=== PATIENT | male | born 1975 | race Caucasian/White ===

== ENCOUNTER 2016-07-31 16:18 | Emergency (ER) | payer BC ==
[~2016-07-31] VITALS: Ht 185.4 cm; Wt 180.0 kg
[2016-07-31 17:18] LABS: EOSINOPHIL (%) 0 % (0-5); HEMATOCRIT 45.4 % (38.0-50.0); IMMATURE GRANULOCYTE (%) 0.1 % (0.0-0.7); IMMATURE GRANULOCYTE COUNT 0.1 K/uL; LYMPHOCYTE COUNT 0.2 K/uL (1.0-2.8); MCH 31.6 PG (29.0-34.0); MCHC 36.8 G/DL (30.0-36.0); MEAN PLAT.VOLUME 9.2 uM^3 (9.0-12.4); MONOCYTE (%) 4.9 % (3-12); MONOCYTE COUNT 0.5 K/uL (0-0.8); NEUTROPHIL (%) 93.3 % (45-76); NEUTROPHIL COUNT 8.8 K/uL (1.8-6.4); PLATELET COUNT 159 K/uL (156-360); RBC DIS.WIDTH-CV 12.8 % (11.8-14.6); RBC DIS.WIDTH-SD 39.8 % (39-53); RED BLOOD COUNT 5.28 M/uL (4.00-5.50); WHITE BLOOD COUNT 9.4 K/uL (4.1-10.2)
[2016-07-31 17:26] LABS: CHLORIDE 105 mEq/L (99-109); POTASSIUM 3.9 mEq/L (3.7-5.4); SODIUM 141 mEq/L (136-147)
[2016-07-31 17:28] LABS: GLUCOSE 111 mg/dL (70-99)
[2016-07-31 17:30] LABS: ANION GAP 11 MEQ/L (2-14); TOTAL BILIRUBIN 1.2 mg/dL (0.0-1.0)
[2016-07-31 17:32] LABS: ALKALINE PHOSPHATASE 63 IU/L (3-129)
[2016-07-31 17:33] LABS: UREA NITROGEN (BUN) 22 mg/dL (9-23)
[2016-07-31 17:35] LABS: LIPASE 51 U/L (1.0-51.0)
[2016-07-31 17:38] LABS: GFR ESTIMATE (CALCULATED) > 59 mL/min/
[2016-07-31] MEDS ORDERED: ZOFRAN ODT8 MG PO (18:24)
[2016-07-31 18:35] VITALS: BP 145/86
== END 2016-07-31 18:36 | disposition home or self-care (01) ==
LOC: EME 16:18
PROVIDERS: Physician Assistant
DX: R11.2 Nausea with vomiting, unspecified (principal); R19.7 Diarrhea, unspecified; G89.29 Other chronic pain; M54.9 Dorsalgia, unspecified
CPT/HCPCS: 74020; 80053; 81003; 83690; 85025; 99281; 99284; J2405; J3010; J7030

== ENCOUNTER 2016-12-18 15:09 | Emergency (ER) | payer OTHER, BC ==
[~2016-12-18] VITALS: Ht 182.9 cm; Wt 81.6 kg
[~2016-12-18 15:09] MED LIST: ZOFRAN ODT8 MG PO
[2016-12-18] MEDS ORDERED: LIDODERM 5% P1 PATCH TD (18:59)
[2016-12-18 22:44] VITALS: BP 122/82
== END 2016-12-18 22:45 | disposition home or self-care (01) ==
LOC: EME 15:09
DX: S49.91XA Unspecified injury of right shoulder and upper arm, initial encounter (principal); X58.XXXA Exposure to other specified factors, initial encounter; F43.20 Adjustment disorder, unspecified; G89.29 Other chronic pain; Z88.0 Allergy status to penicillin
CPT/HCPCS: 90839; 99281; 99284; J1885; J2270